=== PATIENT | male | born 1960 | race Caucasian/White ===

== ENCOUNTER → 2020-04-29 | Outpatient (CLI) | payer BC ==
--- NOTE | 2020-04-30 02:14 | REP ---
Clinical: Right foot pain Technique: AP, lateral, bilateral oblique views right foot . Findings: The osseous structures and joint spaces are intact and age-appropriate. Incidental calcaneal heal spur noted. There is no evidence for acute fracture or dislocation. Surrounding soft tissues are unremarkable. No subcutaneous emphysema or radiodense foreign body. Impression: Age-appropriate right foot series. Moderate calcaneal heal spur. Electronically Signed by Al Penny MD 04/30/2020 02:05 A
== END ==
LOC: M WUC 14:40
PROVIDERS: ATTEND Physician Assistant
DX: M77.31 Calcaneal spur, right foot (principal)

== ENCOUNTER 2020-10-31 19:54 | Inpatient (IN) | payer BC ==
[~2020-10-31] VITALS: Ht 177.8 cm; Wt 97.5 kg
[2020-10-31 21:45] VITALS: BP 129/71
[2020-10-31] MEDS ORDERED: GLUCOSE 4GM CHEW TABLET PO PRN (22:00)
[2020-10-31] MEDS ORDERED: LORazepam 2 MG TAB PO PRN (22:00)
[2020-10-31] MEDS ORDERED: GLUCAGON INJ 1MG VIAL SC PRN (22:00)
[2020-10-31] MEDS ORDERED: DEXTROSE 50% 50 ML SYRINGE IV PRN (22:00)
[2020-10-31 22:42] VITALS: BP 129/71
[2020-10-31] MEDS ORDERED: HumuLIN R (REGULAR) INSULIN (NovoLIN R) **100U/ML** PER UNIT SC ONE (23:00)
[2020-10-31] MEDS ORDERED: LISI20TA35 PO (23:19)
[2020-10-31] MEDS ORDERED: METF500T13 PO (23:20)
[2020-10-31] MEDS ORDERED: ATOR40TA75 PO (23:20)
[2020-10-31] MEDS ORDERED: MULTIVITAMIN -ADULT INJECTION 10 ML, THIAMINE INJection 100 MG, FOLIC ACID 1 MG in NS 1... IV ONE (23:30)
[2020-10-31 23:37] LABS: APPEARANCE, URINE CLEAR (CLEAR); BACTERIA, URINE AUTO NEGATIVE (NEGATIVE); BASO # 0.1 10^3/uL (0.0-0.2); BASO % 0.7 % (0.0-1.0); BILIRUBIN, URINE AUTO NEGATIVE (NEGATIVE); BLOOD, URINE BLOOD 1+ (NEGATIVE); COLOR, URINE STRAW (YELLOW); EOS # 0.2 10^3/uL (0.0-0.5); EOS % 2.1 % (0.0-3.0); GLUCOSE, URINE (UA) AUTO 3+ mg/dL (NEGATIVE); HEMATOCRIT 38.5 % (42.0-52.0); HEMOGLOBIN 13.2 g/dl (13.5-17.5); KETONE, URINE AUTO NEGATIVE (NEGATIVE); LEUKOCYTE ESTERASE, URINE AUTO NEGATIVE (NEGATIVE); LYMPH # 2.4 10^3/uL (1.5-5.0); LYMPH % 28.5 % (24.0-44.0); MEAN CORPUSCULAR HGB CONC 34.3 g/dl (32.0-36.5); MEAN CORPUSCULAR VOLUME 99.2 fl (80.0-96.0); MONO # 0.7 10^3/uL (0.0-0.8); MONO % 8.6 % (0.0-5.0); NEUTROPHILS # 5.1 10^3/uL (1.5-8.5); NEUTROPHILS % 59.7 % (36.0-66.0); NITRITE, URINE AUTO NEGATIVE (NEGATIVE); PLATELET COUNT, AUTOMATED 152 10^3/uL (150-450); PROTEIN, URINE AUTO NEGATIVE (NEGATIVE); RBC, URINE AUTO 0 /HPF (0-3); RED BLOOD COUNT 3.88 10^6/uL (4.30-6.10); SQUAMOUS EPITHELIAL CELL UR AU 0 /HPF (0-6); UROBILINOGEN, URINE AUTO 0.2 mg/dL (0.0-2.0); WBC, URINE AUTO 0 /HPF (0-3); WHITE BLOOD COUNT 8.5 10^3/uL (4.0-10.0)
--- NOTE | 2020-10-31 23:43 | HPEPDOC ---
General Date of Admission Oct 31, 2020 at 21:51 Chief Complaint The patient is a 60-year-old male admitted with a reason for visit of [facility] emia/Alcohol Abuse. Home Medications Scheduled Atorvastatin Calcium (Atorvastatin Calcium) 40 Mg Tablet, 40 MG PO DAILY, (Reported) Lisinopril/Hydrochlorothiazide (Lisinopril-Hctz 20-12.5 mg Tab) 1 Each Tablet, 1 TAB PO DAILY, (Reported) Metformin HCl (Metformin HCl) 500 Mg Tablet, 1,000 MG PO BID, (Reported) Allergies Coded Allergies: No Known Allergies (Verified Allergy, Unknown, 10/31/20) Vital Signs Vital Signs Date Time Temp Pulse Resp B/P (MAP) Pulse Ox O2 Delivery O2 Flow Rate FiO2 10/31/20 22:42 85 129/71 Laboratory Data Labs 24H Laboratory Tests 2 10/31/20 22:26: Bedside Glucose ([facility] Panel) 513*H 10/31/20 22:36: Coronavirus (COVID-19)(PCR) NEGATIVE 10/31/20 23:11: Immature Granulocyte % (Auto) 0.4, Neutrophils (%) (Auto) 59.7, Lymphocytes (%) (Auto) 28.5, Monocytes (%) (Auto) 8.6H, Eosinophils (%) (Auto) 2.1, Basophils (%) (Auto) 0.7, Neutrophils # (Auto) 5.1, Lymphocytes # (Auto) 2.4, Monocytes # (Auto) 0.7, Eosinophils # (Auto) 0.2, Basophils # (Auto) 0.1, Nucleated Red Blood Cells % (auto) 0.0, Urine Color STRAW, Urine Appearance CLEAR, Urine pH 5.0, Urine Specific Lambert 1.020, Urine Protein NEGATIVE, Urine Glucose (Auto)(UA) 3+H, Urine Ketones (Auto) NEGATIVE, Urine Blood 1+H, Urine Nitrite NEGATIVE, Urine Bilirubin NEGATIVE, Urine Urobilinogen 0.2, Urine Leukocyte Esterase (Auto) NEGATIVE, Urine WBC (Auto) 0, Urine RBC (Auto) 0, Urine Hyaline Casts (Auto) 0, Urine Bacteria (Auto) NEGATIVE, Urine Squamous Epithelial Cells 0, Urine Sperm (Auto) CBC/BMP Laboratory Tests 10/31/20 23:11 Problems (1) Hyperglycemia due to type 2 diabetes mellitus (2) Alcoholism /alcohol abuse (3) YOSVANY (obstructive sleep apnea) (4) HTN (hypertension) Rafa Kern MD Oct 31, 2020 23:43
[2020-11-01 00:04] LABS: CALCIUM LEVEL 9.8 MG/DL (8.8-10.2); CREATININE FOR GFR 1.99 MG/DL (0.70-1.30); GLOMERULAR FILTRATION RATE 36.4 (>49); MAGNESIUM LEVEL 2.4 MG/DL (1.8-2.4); POTASSIUM SERUM 4.7 MEQ/L (3.5-5.1)
[2020-11-01] MEDS ORDERED: HumuLIN R (REGULAR) INSULIN (NovoLIN R) **100U/ML** PER UNIT SC ONE (05:30)
[2020-11-01 06:00] VITALS: BP 104/68
[2020-11-01 06:29] LABS: BASO % 0.5 % (0.0-1.0); EOS # 0.2 10^3/uL (0.0-0.5); EOS % 2.4 % (0.0-3.0); HEMATOCRIT 35.4 % (42.0-52.0); HEMOGLOBIN 12.1 g/dl (13.5-17.5); LYMPH # 2.6 10^3/uL (1.5-5.0); LYMPH % 32.3 % (24.0-44.0); MEAN CORPUSCULAR HEMOGLOBIN 33.8 pg (27.0-33.0); MEAN CORPUSCULAR HGB CONC 34.2 g/dl (32.0-36.5); MEAN CORPUSCULAR VOLUME 98.9 fl (80.0-96.0); MONO # 0.7 10^3/uL (0.0-0.8); MONO % 9.2 % (0.0-5.0); NEUTROPHILS # 4.5 10^3/uL (1.5-8.5); NEUTROPHILS % 55.1 % (36.0-66.0); PLATELET COUNT, AUTOMATED 136 10^3/uL (150-450); RED BLOOD COUNT 3.58 10^6/uL (4.30-6.10); WHITE BLOOD COUNT 8.1 10^3/uL (4.0-10.0)
[2020-11-01 06:54] LABS: CALCIUM LEVEL 9.3 MG/DL (8.8-10.2); CREATININE FOR GFR 1.83 MG/DL (0.70-1.30); GLOMERULAR FILTRATION RATE 40.1 (>49); POTASSIUM SERUM 4.5 MEQ/L (3.5-5.1); PREALBUMIN 15.6 MG/DL (20.0-40.0)
[2020-11-01] MEDS: FOLIC ACID 1 MG TAB PO SCH (08:42)
[2020-11-01] MEDS: hydroCHLOROthiazide 12.5 MG CAPSULE PO SCH (08:42)
[2020-11-01] MEDS: THIAMINE 100 MG TAB PO SCH ×2 (08:42→20:41)
[2020-11-01] MEDS: MULTIVITAMINS/MINERALS THERAP 1 TAB PO SCH (08:42)
[2020-11-01] MEDS: ATORVASTATIN 20 MG TAB PO SCH (08:42)
[2020-11-01] MEDS: HumaLOG INSULIN (NovoLOG) PER UNIT SC SCH ×4 (08:43→20:41)
[2020-11-01] MEDS: ENOXAPARIN 40MG/0.4ML SYRINGE (J1650 PER 10MG) SC SCH (08:45)
[2020-11-01] MEDS: lisinopriL 20 MG TAB PO SCH (08:46)
[2020-11-01] MEDS ORDERED: FLUBLOK(EGG FREE)(QUAD)INFLUENZA VACC 0.5ML SYRINGE 18YRS & OLDER IM ONE (09:00)
[2020-11-01] MEDS: LEVEMIR (INSULIN DETEMIR) 1 UNITS/0.01ML SC SCH ×2 (09:00→20:42)
[2020-11-01 10:00] VITALS: BP 107/66
[2020-11-01 11:47] LABS: HEMOGLOBIN A1c > 14.0 %
--- NOTE | 2020-11-01 12:13 | IPNPDOC ---
Text Note Date of Service The patient was seen on 11/01/20. NOTE Patient was seen and examined this morning by me. The patient is sitting com fortably on the chair. States that he is feeling much better. He had breakfast and did not have any nausea, vomiting PHYSICAL EXAMINATION: General: The patient is awake, alert, oriented x3, sitting up in the bed in no apparent distress. Head and Neck Exam: Extraocular muscles intact. Pupils equally round and reactive to light. Mucous membranes are moist. Neck is supple. There is no jugular venous distention (JVD). Cardiovascular: S1 and S2, regular rate. Trace edema of the bilateral lower extremities. Respiratory: Clear to auscultation bilaterally Abdomen: Soft. Positive bowel sounds. Nontender. No organomegaly. Genitourinary: Deferred Musculoskeletal: Clubbing of the fingernails, no cyanosis was noted. 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 Power is 5/5 in all extremities. Labs reviewed Radiology reviewed Assessment and plan (1) Hyperglycemia due to type 2 diabetes mellitus: The patient states that he ran all of his metformin and has also been noncompliant with the diet. He had the blood sugars in 600s. Has been put on sliding scale insulin and currently has been started on Levemir 20 twice a day. HbA1c has been sent. Will continue sliding scale insulin, glucose checks every 4. We'll calculate 24-hour insulin requirement and adjust the insulin dose accordingly. (2) Alcoholism /alcohol abuse: Counseled in detail for that. Currently on thiamine, folic acid. On Aris protocol as well. No signs of withdrawals. (3) YOSVANY (obstructive sleep apnea): Positive for weight loss. Has been instructed and advised to have a sleep study as an outpatient. (4) HTN (hypertension): The home medication not contraindicated (5) acute kidney injury over chronic kidney disease. Baseline not known. Current ly, the patient creatinine is 1.8. Likely diabetic nephropathy. Will get protein creatinine ratio. Optimize medications. DVT, GI prophylaxis Disposition. Likely home in the next 24 hours. VS,Fishbone, I+O VS, Fishbone, I+O Laboratory Tests 10/31/20 23:11 11/01/20 06:12 Vital Signs Date Time Temp Pulse Resp B/P (MAP) Pulse Ox O2 Delivery O2 Flow Rate FiO2 12/14/20 10:00 97.1 89 18 107/66 (80 93 Room Air I&O- Last 24 Hours up to 6 AM 11/01/20 06:00 Intake Total 1020 ml Output Total 1525 ml Balance -505 ml CHACHA MARTI MD Nov 01, 2020 12:13
[2020-11-01 14:30] VITALS: BP 117/68
[2020-11-01 14:33] LABS: CREATININE,RANDOM URINE 31.1 MG/DL; TOTAL PROTEIN,RANDOM URINE 21.8 MG/DL (0.0-12.0)
[2020-11-01 21:00] VITALS: BP 132/77
[2020-11-01 22:00] VITALS: BP 130/72
[2020-11-02] VITALS (8 sets, daily range): BP systolic 86–141; BP diastolic 54–83
[2020-11-02] MEDS: lisinopriL 20 MG TAB PO SCH (08:40)
[2020-11-02] MEDS: ENOXAPARIN 40MG/0.4ML SYRINGE (J1650 PER 10MG) SC SCH (08:40)
[2020-11-02] MEDS: THIAMINE 100 MG TAB PO SCH ×2 (08:40→22:13)
[2020-11-02] MEDS: FOLIC ACID 1 MG TAB PO SCH (08:41)
[2020-11-02] MEDS: ATORVASTATIN 20 MG TAB PO SCH (08:41)
[2020-11-02] MEDS: MULTIVITAMINS/MINERALS THERAP 1 TAB PO SCH (08:41)
[2020-11-02] MEDS: DOCUSATE SODIUM 100MG CAPSULE PO SCH (08:41)
[2020-11-02] MEDS: hydroCHLOROthiazide 12.5 MG CAPSULE PO SCH (08:41)
[2020-11-02] MEDS: LEVEMIR (INSULIN DETEMIR) 1 UNITS/0.01ML SC SCH (08:42)
[2020-11-02] MEDS: HumaLOG INSULIN (NovoLOG) PER UNIT SC SCH ×4 (08:42→22:14)
[2020-11-02 11:17] LABS: ALBUMIN 3.2 GM/DL (3.2-5.2); BILIRUBIN,TOTAL 0.7 MG/DL (0.2-1.0); CALCIUM LEVEL 9.5 MG/DL (8.8-10.2); CREATININE FOR GFR 1.72 MG/DL (0.70-1.30); GLOMERULAR FILTRATION RATE 43.1 (>49); POTASSIUM SERUM 4.7 MEQ/L (3.5-5.1); TOTAL PROTEIN 6.8 GM/DL (6.4-8.2)
[2020-11-02] MEDS ORDERED: HumaLOG INSULIN (NovoLOG) PER UNIT SC STA (13:37)
[2020-11-02] MEDS ORDERED: LEVEMIR (INSULIN DETEMIR) 1 UNITS/0.01ML SC ONE (13:45)
--- NOTE | 2020-11-02 14:17 | IPNPDOC ---
Text Note Date of Service The patient was seen on 11/02/20. NOTE Patient was seen and examined this morning by me. The patient is sitting com fortably on the chair. States that he is feeling much better. BS are still fluctuating. PHYSICAL EXAMINATION: General: The patient is awake, alert, oriented x3, sitting up in the bed in no apparent distress. Head and Neck Exam: Extraocular muscles intact. Pupils equally round and reactive to light. Mucous membranes are moist. Neck is supple. There is no jugular venous distention (JVD). Cardiovascular: S1 and S2, regular rate. Trace edema of the bilateral lower extremities. Respiratory: Clear to auscultation bilaterally Abdomen: Soft. Positive bowel sounds. Nontender. No organomegaly. Genitourinary: Deferred Musculoskeletal: Clubbing of the fingernails, no cyanosis was noted. 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 Power is 5/5 in all ex tremities. Labs reviewed Radiology reviewed Assessment and plan This is a 60-year-old male who was admitted to the hospital because of uncontrolled blood sugars. He states that he drinks on a daily basis and lately he has been drinking more than before and has not been compliant with his diet. States that he used to take only metformin and ran out of his medication as well. His blood sugars have been fluctuating in 400s to 500s and initially he was started on sliding scale insulin along with low-dose of long-acting, which has been escalated and increased and now he is at 12 twice a day of Levemir and sliding scale insulin before meals and at bedtime. His total insulin requirement has been 24 units in the last 24 hours of sliding scale insulin and that adju stment has been made to his long-acting insulin. His A1c is greater than 14 and he will require to be on insulin on discharge. The insulin education has been started. He also has admitted of alcoholism and for that reason, he has been on thiamine, folic acid and at the same time. Counseling has been done. He would require extensive counseling for his diabetes as well. Continue to monitor the 24-hour insulin requirement and adjust his long-acting accordingly. Once we know what his optimal dose for him. He'll be discharged home on the insulin (1) Hyperglycemia due to type 2 diabetes mellitus: The patient states that he ran all of his metformin and has also been noncompliant with the diet. He had the blood sugars in 600s. Has been put on sliding scale insulin and currently has been started on Levemir 12 twice a day. HbA1c is greater than 40. Will continue sliding scale insulin, glucose checks every 4. We'll calculate 24-hour insulin requirement and adjust the insulin dose accordingly. (2) Alcoholism /alcohol abuse: Counseled in detail for that. Currently on thiamine, folic acid. On Aris protocol as well. No signs of withdrawals. (3) YOSVANY (obstructive sleep apnea): Positive for weight loss. Has been instructed and advised to have a sleep study as an outpatient. (4) HTN (hypertension): The home medication not contraindicated (5) acute kidney injury over chronic kidney disease. Baseline not known., But the creatinine is improving. Currently, Likely diabetic nephropathy. Will get protein creatinine ratio. Optimize medications. Lisinopril on hold. DVT, GI prophylaxis Disposition. Likely home in the next 24 hours. VS,Fishbone, I+O VS, Fishbone, I+O Laboratory Tests 11/02/20 10:26 Vital Signs Date Time Temp Pulse Resp B/P (MAP) Pulse Ox O2 Delivery O2 Flow Rate FiO2 11/02/20 10:00 97.9 92 16 100/65 (77) 91 Room Air I&O- Last 24 Hours up to 6 AM 11/02/20 05:59 Intake Total 1710 ml Output Total 2725 ml Balance -1015 ml CHACHA MARTI MD Nov 02, 2020 14:17
[2020-11-02] MEDS ORDERED: SODIUM CHLORIDE 0.9% 1000ML IV ONE (14:45)
[2020-11-02] MEDS ORDERED: LEVEMIR (INSULIN DETEMIR) 1 UNITS/0.01ML SC SCH (21:00)
[2020-11-03 06:00] VITALS: BP 132/72
[2020-11-03 06:32] LABS: HEMATOCRIT 34.7 % (42.0-52.0); HEMOGLOBIN 11.4 g/dl (13.5-17.5); MEAN CORPUSCULAR HEMOGLOBIN 32.9 pg (27.0-33.0); MEAN CORPUSCULAR HGB CONC 32.9 g/dl (32.0-36.5); PLATELET COUNT, AUTOMATED 138 10^3/uL (150-450); RED BLOOD COUNT 3.47 10^6/uL (4.30-6.10); WHITE BLOOD COUNT 6.2 10^3/uL (4.0-10.0)
[2020-11-03 06:53] LABS: ALBUMIN 2.6 GM/DL (3.2-5.2); BILIRUBIN,TOTAL 0.4 MG/DL (0.2-1.0); CALCIUM LEVEL 8.4 MG/DL (8.8-10.2); CREATININE FOR GFR 1.63 MG/DL (0.70-1.30); GLOMERULAR FILTRATION RATE 45.9 (>49); POTASSIUM SERUM 4.1 MEQ/L (3.5-5.1); TOTAL PROTEIN 6.4 GM/DL (6.4-8.2)
[2020-11-03] MEDS ORDERED: LEVE1INJ5 SC (07:21)
[2020-11-03] MEDS ORDERED: THIA100TA PO (08:41)
[2020-11-03] MEDS ORDERED: VITMTA PO (08:41)
[2020-11-03] MEDS ORDERED: FOLI1TAB11 PO (08:41)
[2020-11-03] MEDS ORDERED: PEN1MIS22 SC (08:44)
[2020-11-03] MEDS ORDERED: LANC30MI XX (08:44)
[2020-11-03] MEDS ORDERED: GLUC1TES2 XX (08:44)
[2020-11-03] MEDS ORDERED: ALCOPAD25 TOP (08:44)
[2020-11-03] MEDS ORDERED: BLOOKIT21 XX (08:44)
[2020-11-03] MEDS ORDERED: LEVEMIR (INSULIN DETEMIR) 1 UNITS/0.01ML SC SCH (09:00)
[2020-11-03] MEDS: HumaLOG INSULIN (NovoLOG) PER UNIT SC SCH ×2 (09:07→11:56)
[2020-11-03] MEDS: DOCUSATE SODIUM 100MG CAPSULE PO SCH (09:08)
[2020-11-03] MEDS: MULTIVITAMINS/MINERALS THERAP 1 TAB PO SCH (09:08)
[2020-11-03] MEDS: ENOXAPARIN 40MG/0.4ML SYRINGE (J1650 PER 10MG) SC SCH (09:08)
[2020-11-03] MEDS: ATORVASTATIN 20 MG TAB PO SCH (09:08)
[2020-11-03] MEDS: FOLIC ACID 1 MG TAB PO SCH (09:08)
[2020-11-03] MEDS: THIAMINE 100 MG TAB PO SCH (09:08)
[2020-11-03 10:00] VITALS: BP 132/68
[2020-11-03] MEDS ORDERED: LANTINJ4 SC (12:11)
--- NOTE | 2020-11-04 17:28 | DS.PDOC ---
Discharge Summary General Date of Admission Oct 31, 2020 at 21:51 Date of Discharge 11/03/20 Discharge Summary PROCEDURES PERFORMED DURING STAY: [None]. DISCHARGE DIAGNOSES: Diabetes with uncontrolled hyperglycemia diabetic nephropathy CKD stage 3 Alcohol use disorder Obesity YOSVANY Hypertension HLD COMPLICATIONS/CHIEF COMPLAINT: Hyperglycemia/Alcohol Abuse. HOSPITAL COURSE: This is a 60-year-old male who was admitted to the hospital because of uncontrolled blood sugars. He states that he drinks on a daily basis and lately he has been drinking more than before and has not been compliant with his diet. States that he used to take only metformin and ran out of his medi cation as well. His blood sugars have been fluctuating in 400s to 500s and initially he was started on sliding scale insulin along with low-dose of long- acting, which has been escalated and increased and now he is at 12 twice a day of Levemir and sliding scale insulin before meals and at bedtime. His total insulin requirement has been 24 units in the last 24 hours of sliding scale insulin and that adjustment has been made to his long-acting insulin. his sugars still over 300 so dose increased to 30 units on discharge. Instructed to check his sugars bid. His A1c is greater than 14. The insulin education provided. He also has admitted of alcoholism and for that reason, he has been on thiamine, folic acid and at the same time. Counseling has been done. He would require extensive counseling for his diabetes as well to be continued with PMD. Hyperglycemia due to type 2 diabetes mellitus started on Lantus 30 units daily. continue metformin. Alcoholism /alcohol abuse Counseled in detail for that. Currently on thiamine, folic acid. No signs of withdrawals. YOSVANY (obstructive sleep apnea): Positive for weight loss. Has been instructed and advised to have a sleep study as an outpatient. HTN continue lisinopril and hydrochlorothiazide Probable CKD stage 3 due to diabetic nephropathy Hyperlipidemia statin DISCHARGE MEDICATIONS: Please see below. ALLERGIES: Please see below. PHYSICAL EXAMINATION ON DISCHARGE: VITAL SIGNS: Please see below. General: The patient is awake, alert, oriented x3, sitting up in the bed in no apparent distress. Head and Neck Exam: Extraocular muscles intact. Pupils equally round and reactive to light. Mucous membranes are moist. Neck is supple. There is no jugular venous distention (JVD). Cardiovascular: S1 and S2, regular rate. Trace edema of the bilateral lower extremities. Respiratory: Clear to auscultation bilaterally Abdomen: Soft. Positive bowel sounds. Nontender. No organomegaly. Genitourinary: Deferred Musculoskeletal: Clubbing of the fingernails, no cyanosis was noted. 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 Power is 5/5 in all extremities. LABORATORY DATA: Please see below. ACTIVITY: [As tolerated]. DIET: Carb consistent DISPOSITION: 01 Home, Self-Care. DISCHARGE INSTRUCTIONS: PMD in 1 weeK DISCHARGE CONDITION: [Stable]. TIME SPENT ON DISCHARGE: 35 minutes. Vital Signs/I&Os Vital Signs Date Time Temp Pulse Resp B/P (MAP) Pulse Ox O2 Delivery O2 Flow Rate FiO2 11/03/20 10:00 97.9 82 17 132/68 (89) 96 Room Air I&O- Last 24 Hours up to 6 AM 11/04/20 06:00 Intake Total 510 ml Output Total 0 ml Balance 510 ml Discharge Medications Scheduled Atorvastatin Calcium (Atorvastatin Calcium) 40 Mg Tablet, 40 MG PO DAILY, (Reported) Blood Sugar Diagnostic (Advanced Glucose Test Strips) 1 Each Strip, 1 STRIP XX ASDIRECTED Folic Acid (Folic Acid) 1 Mg Tablet, 1 MG PO DAILY Insulin Glargine,Hum.rec.anlog (Lantus Solostar) 100 Unit/1 Ml Insuln.pen, 30 UNITS SC QAM Lisinopril/Hydrochlorothiazide (Lisinopril-Hctz 20-12.5 mg Tab) 1 Each Tablet, 1 TAB PO DAILY, (Reported) Metformin HCl (Metformin HCl) 500 Mg Tablet, 1,000 MG PO BID, (Reported) Multivitamins (Thera M Plus Tablet) 1 Each Tablet, 1 TAB PO DAILY Thiamine Hcl (Vitamin B-1) 100 Mg Tablet, 100 MG PO DAILY Allergies Coded Allergies: No Known Allergies (Verified Allergy, Unknown, 10/31/20) PETER ARGUETA MD Nov 04, 2020 17:28
== END 2020-11-03 15:11 | disposition home or self-care (01) | DRG 420 ==
LOC: M ED INP 21:51 → M MSPAV 22:45
PROVIDERS: ADMIT Family Medicine; ATTEND Internal Medicine Nephrology
DX: E11.65 Type 2 diabetes mellitus with hyperglycemia (principal); I12.9 Hypertensive chronic kidney disease with stage 1 through stage 4 chronic kidney disease, or unspecified chronic kidney disease; N18.30 Chronic kidney disease, stage 3 unspecified; E11.22 Type 2 diabetes mellitus with diabetic chronic kidney disease; F10.20 Alcohol dependence, uncomplicated; G47.33 Obstructive sleep apnea (adult) (pediatric); T38.3X6A Underdosing of insulin and oral hypoglycemic [antidiabetic] drugs, initial encounter; E78.5 Hyperlipidemia, unspecified; E66.9 Obesity, unspecified; Z79.84 Long term (current) use of oral hypoglycemic drugs; Z79.899 Other long term (current) drug therapy; Z91.14 Patient's other noncompliance with medication regimen; Z91.128 Patient's intentional underdosing of medication regimen for other reason; Z91.11 Patient's noncompliance with dietary regimen; Z20.828 Contact with and (suspected) exposure to other viral communicable diseases; Z68.30 Body mass index [BMI] 30.0-30.9, adult

== ENCOUNTER → 2021-09-14 | Outpatient (CLI) | payer BC ==
[~2021-09-14] MED LIST: ALCOPAD25 TOP; ATOR40TA75 PO; BLOOKIT21 XX; FOLI1TAB11 PO; GLUC1TES2 XX; LANC30MI XX; LANTINJ4 SC; LEVE1INJ5 SC; LISI20TA35 PO; METF500T13 PO; PEN1MIS22 SC; THIA100TA PO; VITMTA PO
--- NOTE | 2021-09-15 09:54 | REP ---
INDICATION: LUNG CA SCREENING. COMPARISON: None. TECHNIQUE: Axial noncontrast images from the thoracic inlet to the upper abdomen using low-dose lung screening technique (LDCT). As per the protocol only lung window images were sent to the read station for interpretation. FINDINGS: In the apicoposterior segment of the left upper lobe medially and abutting the major fissure there is a 6 mm size nodule. No other abnormal nodules, masses, or opacities are identified. Grossly, the mediastinum and pulmonary art are within normal limits. Grossly, the imaged upper abdomen and imaged osseous structures are within normal limits. IMPRESSION: Lung rads category [address] low-dose screening CT examination of the lungs. According to the revised Fleischner society criteria a six-month follow-up chest CT is recommended <Electronically signed by Deepak Browne > 09/15/21 0933
== END ==
LOC: M RAD 13:25
PROVIDERS: ATTEND Internal Medicine
DX: Z12.2 Encounter for screening for malignant neoplasm of respiratory organs (principal); F17.210 Nicotine dependence, cigarettes, uncomplicated; R91.1 Solitary pulmonary nodule

== ENCOUNTER → 2022-01-16 | Outpatient (CLI) | payer BC | LOC: M PLAIMG 10:36 | PROVIDERS: ATTEND Internal Medicine | DX: R91.1 Solitary pulmonary nodule (principal) ==

== ENCOUNTER → 2022-07-20 | Outpatient (CLI) | payer BC | LOC: M WHC 10:25 | PROVIDERS: ATTEND Internal Medicine | DX: K76.0 Fatty (change of) liver, not elsewhere classified (principal) ==

== ENCOUNTER → 2024-01-16 | Outpatient (CLI) | payer MEDICARE ==
[~2024-01-16] MED LIST changes: +INSU100I6 SC; -LEVE1INJ5 SC
== END ==
LOC: M RAD 01-07 07:36
PROVIDERS: ATTEND Internal Medicine
DX: K76.0 Fatty (change of) liver, not elsewhere classified (principal); K74.60 Unspecified cirrhosis of liver

== ENCOUNTER → 2024-02-11 | Outpatient (CLI) | payer MEDICARE | LOC: M RAD 15:49 | PROVIDERS: ATTEND Internal Medicine | DX: F17.210 Nicotine dependence, cigarettes, uncomplicated (principal); J34.9 Unspecified disorder of nose and nasal sinuses; J47.9 Bronchiectasis, uncomplicated; J98.11 Atelectasis ==

== ENCOUNTER → 2024-07-02 | Outpatient (REF) | payer MEDICARE ==
[2024-07-02 18:51] LABS: HEPATITIS B SURFACE ANTIGEN NEGATIVE (NEGATIVE)
[2024-07-02 19:11] LABS: HEPATITIS C VIRUS ABY INDEX 0.06 INDEX (<0.8)
== END ==
LOC: M LAB REF 16:36
PROVIDERS: ATTEND Internal Medicine
DX: K70.30 Alcoholic cirrhosis of liver without ascites (principal); K76.0 Fatty (change of) liver, not elsewhere classified; Z11.59 Encounter for screening for other viral diseases

== ENCOUNTER → 2025-02-16 | Outpatient (REF) | payer MEDICARE | LOC: M LAB REF 17:14 | PROVIDERS: ATTEND Internal Medicine | DX: K70.30 Alcoholic cirrhosis of liver without ascites (principal) ==

== ENCOUNTER → 2025-03-05 | Outpatient (CLI) | payer MEDICARE | LOC: M RAD 08:01 | PROVIDERS: ATTEND Internal Medicine | DX: K70.30 Alcoholic cirrhosis of liver without ascites (principal) ==

== ENCOUNTER → 2025-07-01 | Outpatient (CLI) | payer MEDICARE | LOC: M RAD 13:36 | PROVIDERS: ATTEND Internal Medicine | DX: J98.11 Atelectasis (principal); R91.1 Solitary pulmonary nodule; J43.9 Emphysema, unspecified; F17.210 Nicotine dependence, cigarettes, uncomplicated ==